=== PATIENT | male | born 1995 | race Asian ===

== ENCOUNTER 2018-09-16 12:08 | Emergency (ER) | payer OTHER ==
[~2018-09-16] VITALS: Ht 165.1 cm; Wt 81.6 kg
[2018-09-16 12:11] VITALS: Ht 165.1 cm; Wt 81.6 kg
[2018-09-16 12:43] VITALS: BP 133/98
== END 2018-09-16 12:43 | disposition home or self-care (01) ==
LOC: ED 12:08
DX: B34.9 Viral infection, unspecified (principal); Z98.890 Other specified postprocedural states